=== PATIENT | male | born 1975 | race Caucasian/White ===

== ENCOUNTER 2017-09-24 20:31 | Inpatient (IN) | payer SELFPAY ==
[~2017-09-24] VITALS: Ht 182.9 cm; Wt 93.0 kg
[2017-09-24 20:37] VITALS: BP_SYST 150
[2017-09-24] MEDS ORDERED: NACL 0.9% 1,000 ML IV ONE ×2 (21:03→22:30)
[2017-09-24] MEDS ORDERED: methylPREDNISolone SOD SUCC/PF 62.5 MG/ML VIAL IVP ONE (21:15)
[2017-09-24] MEDS ORDERED: DIPHENHYDRAMINE INJ 50 MG/ML VIAL IVP ONE (21:15)
[2017-09-24 21:36] LABS: BASOPHILS # (AUTO) 0.1 K/uL (0.0-0.2); BASOPHILS % (AUTO) 0.5 % (0.0-2.0); EOSINOPHILS # (AUTO) 0.3 K/uL (0.0-0.4); EOSINOPHILS % (AUTO) 2.5 % (0.0-4.0); HEMATOCRIT 47.8 % (36-54); HEMOGLOBIN 16.1 g/dL (14.0-18.0); LYMPHOCYTES # (AUTO) 0.8 K/uL (1.0-5.5); LYMPHOCYTES % (AUTO) 6.3 % (20.5-51.5); MEAN CORPUSCULAR HEMOGLOBIN 30 pg (27-31); MEAN CORPUSCULAR HGB CONC 34 % (32-36); MEAN CORPUSCULAR VOLUME 88 fL (79.0-98.0); MONOCYTES # (AUTO) 0.3 K/uL (0.0-1.0); MONOCYTES % (AUTO) 2.4 % (1.7-9.3); NEUTROPHILS # (AUTO) 11.4 K/uL (1.8-7.7); NEUTROPHILS % (AUTO) 88.3 % (40.0-70.0); PLATELET COUNT (AUTO) 327 K/uL (130-430); RED BLOOD CELL COUNT(AUTO) 5.41 MIL/uL (4.2-6.2); RED CELL DISTRIBUTION WIDTH 13.4 % (9.0-15.0); WHITE BLOOD COUNT (AUTO) 12.9 K/uL (4.8-10.8)
[2017-09-24 21:49] LABS: CALCIUM 8.5 mg/dL (8.4-11.0); CREATININE 0.85 mg/dL (0.55-1.30); POTASSIUM 3.6 mmol/L (3.5-5.1)
[2017-09-24 21:54] LABS: ALBUMIN 3.4 g/dL (3.4-4.8); TOTAL BILIRUBIN 0.5 mg/dL (0.0-1.0)
[2017-09-25] VITALS (7 sets, daily range): BP systolic 106–134
[2017-09-25] MEDS ORDERED: VANCOMYCIN HCL 1 GM/NS PREMIX 250 ML IV ONE (00:15)
[2017-09-25] MEDS ORDERED: AMPICILLIN SODIUM/SULBACTAM NA 3 GM VIAL ONE (00:32)
[2017-09-25] MEDS ORDERED: VANCOMYCIN HCL 1000 MG/VIAL IV ONE (00:32)
[2017-09-25] MEDS: NACL 0.9% 1,000 ML IV SCH ×3 (00:44→19:45)
[2017-09-25] MEDS: AMPICILLIN SODIUM/SULBACTAM NA 3 GM in NS 100 ML IV SCH ×5 (00:45→23:09)
[2017-09-25] MEDS: DIPHENHYDRAMINE INJ 50 MG/ML VIAL IVP PRN (09:36)
[2017-09-25] MEDS ORDERED: ACETAMINOPHEN 325 MG TABLET ONE (11:28)
[2017-09-25] MEDS ORDERED: VANCOMYCIN HCL 1,000 MG in NS 250 ML IV SCH (12:00)
[2017-09-25 14:29] LABS: MEAN CORPUSCULAR HGB CONC 33 % (32-36)
[2017-09-25 14:37] LABS: HEMATOCRIT 45.5 % (36-54); HEMOGLOBIN 15.2 g/dL (14.0-18.0); MEAN CORPUSCULAR HEMOGLOBIN 30 pg (27-31)
[2017-09-25 14:46] LABS: MEAN CORPUSCULAR VOLUME 89 fL (79.0-98.0); PLATELET COUNT (AUTO) 331 K/uL (130-430); RED BLOOD CELL COUNT(AUTO) 5.13 MIL/uL (4.2-6.2); RED CELL DISTRIBUTION WIDTH 13.3 % (9.0-15.0); WHITE BLOOD COUNT (AUTO) 26.4 K/uL (4.8-10.8)
[2017-09-25 14:50] LABS: CALCIUM 8.4 mg/dL (8.4-11.0); CREATININE 1.23 mg/dL (0.55-1.30); POTASSIUM 4.1 mmol/L (3.5-5.1)
[2017-09-25 15:31] LABS: ATYPICAL LYMPHOCYTES % 4 % (0-0); BAND % (MANUAL) 39 % (0-6); BASOPHILS % (MANUAL) 0 % (0-2); EOSINOPHILS % (MANUAL) 3 % (0-7); LYMPHOCYTES % (MANUAL) 1 % (20-46); METAMYELOCYTES % 1 % (0-0); MONOCYTES % (MANUAL) 1 % (0-11)
[2017-09-25] MEDS ORDERED: AZITHROMYCIN 500 MG in NS 250 ML IV SCH (17:00)
[2017-09-25] MEDS: PREDNISONE 20 MG TABLET PO SCH (17:41)
[2017-09-25] MEDS: ACETAMINOPHEN 325 MG TABLET PO PRN (18:28)
[2017-09-26 01:04] VITALS: BP_SYST 127
[2017-09-26] MEDS: ACETAMINOPHEN 325 MG TABLET PO PRN ×2 (02:38→08:27)
[2017-09-26] MEDS: AMPICILLIN SODIUM/SULBACTAM NA 3 GM in NS 100 ML IV SCH ×4 (05:08→23:53)
[2017-09-26] MEDS: NACL 0.9% 1,000 ML IV SCH ×2 (05:12→13:15)
[2017-09-26 07:05] LABS: BASOPHILS # (AUTO) 0.2 K/uL (0.0-0.2); BASOPHILS % (AUTO) 0.6 % (0.0-2.0); EOSINOPHILS # (AUTO) 0.8 K/uL (0.0-0.4); EOSINOPHILS % (AUTO) 2.8 % (0.0-4.0); HEMATOCRIT 42.8 % (36-54); HEMOGLOBIN 14.6 g/dL (14.0-18.0); LYMPHOCYTES # (AUTO) 1.2 K/uL (1.0-5.5); LYMPHOCYTES % (AUTO) 4.4 % (20.5-51.5); MEAN CORPUSCULAR HEMOGLOBIN 30 pg (27-31); MEAN CORPUSCULAR HGB CONC 34 % (32-36); MEAN CORPUSCULAR VOLUME 89 fL (79.0-98.0); MONOCYTES # (AUTO) 0.2 K/uL (0.0-1.0); MONOCYTES % (AUTO) 0.7 % (1.7-9.3); NEUTROPHILS # (AUTO) 24.7 K/uL (1.8-7.7); PLATELET COUNT (AUTO) 315 K/uL (130-430); RED BLOOD CELL COUNT(AUTO) 4.83 MIL/uL (4.2-6.2); RED CELL DISTRIBUTION WIDTH 13.4 % (9.0-15.0); WHITE BLOOD COUNT (AUTO) 27.1 K/uL (4.8-10.8)
[2017-09-26 07:25] LABS: CALCIUM 8.2 mg/dL (8.4-11.0); CREATININE 0.72 mg/dL (0.55-1.30); POTASSIUM 3.4 mmol/L (3.5-5.1)
[2017-09-26 07:33] LABS: NEUTROPHILS % (AUTO) 91.5 % (40.0-70.0)
[2017-09-26 08:00] VITALS: BP_SYST 98
[2017-09-26] MEDS: PREDNISONE 20 MG TABLET PO SCH ×2 (08:26→20:20)
[2017-09-26 12:00] VITALS: BP_SYST 118
[2017-09-26] MEDS ORDERED: POTASSIUM CHLORIDE 20 MEQ TAB.PRT.SR PO ONE (14:00)
[2017-09-26] MEDS: AZITHROMYCIN 500 MG in D5W 250 ML IV SCH (14:27)
[2017-09-26 16:00] VITALS: BP_SYST 101
[2017-09-26 20:00] VITALS: BP_SYST 112
[2017-09-26] MEDS: DIPHENHYDRAMINE INJ 50 MG/ML VIAL IVP PRN (20:25)
[2017-09-27] VITALS: BP_SYST 111
[2017-09-27] MEDS: AMPICILLIN SODIUM/SULBACTAM NA 3 GM in NS 100 ML IV SCH ×4 (06:11→23:51)
[2017-09-27 07:38] LABS: BASOPHILS # (AUTO) 0.1 K/uL (0.0-0.2); BASOPHILS % (AUTO) 0.3 % (0.0-2.0); EOSINOPHILS # (AUTO) 1.2 K/uL (0.0-0.4); EOSINOPHILS % (AUTO) 5.5 % (0.0-4.0); HEMOGLOBIN 13.9 g/dL (14.0-18.0); LYMPHOCYTES % (AUTO) 9.3 % (20.5-51.5); MEAN CORPUSCULAR HEMOGLOBIN 30 pg (27-31); MEAN CORPUSCULAR HGB CONC 34 % (32-36); MEAN CORPUSCULAR VOLUME 90 fL (79.0-98.0); MONOCYTES # (AUTO) 0.4 K/uL (0.0-1.0); MONOCYTES % (AUTO) 1.8 % (1.7-9.3); NEUTROPHILS # (AUTO) 18.2 K/uL (1.8-7.7); NEUTROPHILS % (AUTO) 83.1 % (40.0-70.0); PLATELET COUNT (AUTO) 316 K/uL (130-430); RED BLOOD CELL COUNT(AUTO) 4.58 MIL/uL (4.2-6.2); RED CELL DISTRIBUTION WIDTH 13.4 % (9.0-15.0); WHITE BLOOD COUNT (AUTO) 21.9 K/uL (4.8-10.8)
[2017-09-27 08:12] LABS: CALCIUM 8.1 mg/dL (8.4-11.0); CREATININE 0.72 mg/dL (0.55-1.30)
[2017-09-27 08:20] LABS: ALBUMIN 2.5 g/dL (3.4-4.8); TOTAL BILIRUBIN 0.3 mg/dL (0.0-1.0)
[2017-09-27] MEDS: PREDNISONE 20 MG TABLET PO SCH ×2 (09:27→20:26)
[2017-09-27 11:51] VITALS: BP_SYST 99
[2017-09-27] MEDS: AZITHROMYCIN 500 MG in D5W 250 ML IV SCH (13:05)
[2017-09-27 16:00] VITALS: BP_SYST 95
[2017-09-27 19:00] VITALS: BP_SYST 110
[2017-09-27 23:17] VITALS: BP_SYST 110
[2017-09-28 00:31] VITALS: BP_SYST 111
[2017-09-28] MEDS: AMPICILLIN SODIUM/SULBACTAM NA 3 GM in NS 100 ML IV SCH ×2 (05:46→13:26)
[2017-09-28 08:00] VITALS: BP_SYST 111
[2017-09-28] MEDS: PREDNISONE 20 MG TABLET PO SCH (09:26)
[2017-09-28 13:13] VITALS: BP_SYST 116
[2017-09-28] MEDS: AZITHROMYCIN 500 MG in D5W 250 ML IV SCH (13:27)
[2017-09-28 17:16] VITALS: BP_SYST 129
[2017-09-28 20:13] LABS: MYCOPLASMA PNEUMONIAE IgM <770 U/mL (0-769)
== END 2017-09-28 17:30 | disposition home or self-care (01) | DRG 868 ==
LOC: SED 20:31 → STU 23:31 → SMU 09-26 14:10
PROVIDERS: ADMIT Internal Medicine; ATTEND Internal Medicine
DX: A38.9 Scarlet fever, uncomplicated (principal); E87.1 Hypo-osmolality and hyponatremia; B34.9 Viral infection, unspecified; F17.200 Nicotine dependence, unspecified, uncomplicated; L51.9 Erythema multiforme, unspecified
CPT/HCPCS: 36415; 80048; 80053; 83605; 85007; 85025; 85027; 86403; 86694; 86738; 87040-TC; 87081; 96361; 96374; 96375; 99285; J0295; J0456; J1200; J2930; J3370; J7030; J7040; J7050; J7060; J7512